=== PATIENT | male | born 1975 | race Caucasian/White ===

== ENCOUNTER 2020-07-13 14:50 | Outpatient (CLI) | payer OTHER ==
[2020-07-13 15:56] VITALS: BP 132/75
--- NOTE | 2020-07-13 15:56 | SLEEP CARE CONSULTATION ---
Information from patient questionnaire entered by Carla Mckeon. I have reviewed and concur with the information entered by Carla Mckeon. This document represents the service I personally performed and the decisions made by me, Iman Castellano ARNP. History of Present Illness Service Date and Time: 07/13/2020 1450 Reason for Visit: New patient Chief Complaint: reports: Unrefreshed sleep, Snoring, Observed pauses in breathing, Fatigue, Frequent awakenings at night. denies: Insomnia, Excessive daytime sleepiness, Other Date of Onset: 6 years Usual bedtime: 8:30 PM Time it takes to fall asleep: 30 min Snores at night: Yes Observed to quit breathing while asleep: Yes Sleeps alone due to snoring: No Number of times waking at night: 3 plus Reasons for waking at night: reports: Choking, Snoring, Bathroom. denies: Gasping for air, Pain Toss, Turn, or Twitch while sleeping: Yes Recalls having dreams: No Usually gets out of bed at: 0400; 0600 weekends Feels refreshed in the morning: No Morning headache: No Sleepy or fatigued during the day: Yes Ever fallen asleep while driving: No Takes day naps: No Dreams during day naps: No Prior sleep studies: Yes Year and Where: Around 2004 in [place], [place] Additional HPI information: I had the pleasure of seeing SELIN NICHOLSON today regarding the possibility of him having a sleep disorder. His current complaints are unrefreshed sleep, snoring, observed pauses in breathing and frequent awakening nightly. He estimates in 2004 that he had a sleep study but never heard back from them about results. He never went back. - Parasomnia Symptoms Ever been unable to move upon waking from sleep: No Walks in sleep: Yes Talks in sleep: Yes Ever acted out dreams in sleep: No Ever felt weak in the knees when startled or emotional: No Bothered by creepy, crawly, restless sensations in legs: No Problems with memory or concentration: No Subjective Initial [place] Sleepiness Scale score: 3 (in 2019) Past Medical History Past Medical History: denies: Hypertension, Congestive Heart Failure, Diabetes, Coronary Heart Disease, Arrythmia, Hypothyroidism, Anemia, Anxiety, Impotence, Depression, Mood disorder, GERD (only when diet not good, has reflux), Attention deficit Social History 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 Patient is and lives in [place]. Have you smoked in the past 12 months: Yes (vaping since 2013) Cigarettes per day (20/pack): 1 Years of smokin Quit date: 2013 Smoking Pack Years: 0 Alcohol use: Yes Alcohol amount and frequency: 3/month Caffeine use: Yes Caffeine amount and frequency: 1 cup of coffee daily Family History Family history of sleep disordered breathing: Yes (father) Family Hx Sleep Apnea: Father: Snoring Allergies and Home Medications Drug allergies reviewed: Yes (NKDA) Home medication list reviewed: Yes Allergy and home medication list: melatonin 10 mg nightly multivitamin fish oil Review of Systems Weight gain over past 5 years: 30 Cardiovascular: denies: high blood pressure, palpitations, chest pain, irregular heart rate or pulse, leg or foot swelling Respiratory: denies: shortness of breath, chronic cough Gastrointestinal: denies: heartburn, difficulty swallowing Urinary: reports: frequency. denies: impotence Neurological: denies: headaches, seizure, head trauma, speech dysfunction, gait or balance problems, fainting or unconsciousness Psychiatric: reports: anxiety. denies: Attention Deficit Hyperactivity, depression, mood disorder, claustrophobia Ear/Nose/Throat: reports: injury to nose (fracture when young; has trouble breathing through nose), wisdom teeth removed. denies: nasal congestion, sinus problems, nose bleeds, dry mouth/throat, tonsillectomy Endocrine: reports: increased urination Musculoskeletal: reports: joint pain, back pain, mobility problems Immunologic: denies: allergies to food or environment Physical Exam Blood Pressure: 132/75 Cuff size: wrist Heart Rate: 83 O2 Saturation: 96 Height: 5 ft 10 in Weight: 245 lb Body Mass Index: 35.2 BMI Classification: Obese Neck circumference: 18 (inches) HEENT: No craniofacial malformation Nostrils: patent to airflow Turbinates: normal Septum: deviated left Mouth and throat: narrow oropharynx Soft palate: normal Hard palate: normal Uvula: normal Uvula visualization: 25% Mallampati Class III Tongue: enlarged in size with teeth smiley on lateral edges Tonsils: 2+ Chin and jaw: normal size and position Neck: normal w/o lymphadenopathy or thyromegaly Heart: regular rate and rhythm Lungs: clear bilaterally Impression and Plan 1. Suspected Obstructive Sleep Apnea-Hypopnea Syndrome, as suggested by a history of loud and irregular snoring, observed cessation of breath while asleep, gasping or choking in sleep, frequent awakening during the night, unrefreshed sleep, and excessive daytime sleepiness. I reviewed that a narrow oropharynx and obesity are common predisposing factors for obstructive sleep apnea-hypopnea syndrome. I recommend proceeding to polysomnography to confirm the diagnosis and to assess severity. If the patient has significant sleep disordered breathing, a manual CPAP titration study will also be performed to find the optimal treatment pressure. I informed the patient of what the sleep studies involve and after some discussion, obtained agreement to proceed. The pathophysiology of obstructive sleep apnea-hypopnea syndrome was discussed with the patient and health risks of cardiovascular and cerebrovascular disease if not treated. AAS brochure for obstructive sleep apnea-hypopnea syndrome given and reviewed. Risks of drowsy driving discussed in detail and patient advised to avoid long distance driving and to wool puller at the first sign of drowsiness. Patient agreed to plan. * Schedule polysomnography +- manual CPAP titration study. * Avoid long distance driving or driving when feeling sleepy. * Avoid alcohol, sedative and muscle relaxant around bedtime. * Attempt to lose weight. * Review instructions provided by trained office staff on how to prepare for the sleep study. * Return for follow-up after sleep study completed. Visit Type: In Office Time Spent with Patient (minutes): 35 Provider Statement: I spent 100% of the Face to Face Visit with the patient with greater than 50% spent counseling the patient and coordination of care.
== END 2020-07-13 14:51 | disposition home or self-care (01) ==
LOC: SC 14:50
PROVIDERS: ATTEND Nurse Practitioner Family
DX: R06.83 Snoring (principal); R06.81 Apnea, not elsewhere classified; G47.8 Other sleep disorders; G47.10 Hypersomnia, unspecified; E66.9 Obesity, unspecified; Z68.35 Body mass index [BMI] 35.0-35.9, adult
CPT/HCPCS: 99203; 99212

== ENCOUNTER 2020-08-18 19:16 | Outpatient (CLI) | payer OTHER | END 2020-08-18 19:17 | disposition home or self-care (01) | LOC: SC 19:16 | PROVIDERS: ATTEND Nurse Practitioner Family | DX: G47.33 Obstructive sleep apnea (adult) (pediatric) (principal); E66.3 Overweight; Z68.35 Body mass index [BMI] 35.0-35.9, adult | CPT/HCPCS: 95810 ==

== ENCOUNTER 2020-08-25 16:31 | Outpatient (CLI) | payer OTHER ==
--- NOTE | 2020-08-25 16:57 | SLEEP CARE CONSULTATION ---
Information from patient questionnaire entered by Carla Mckeon. I have reviewed and concur with the information entered by Carla Mckeon. This document represents the service I personally performed and the decisions made by me, Iman Castellano ARNP. History of Present Illness Service Date and Time: 08/25/2020 1631 Initial [place] Sleepiness Scale score: 3 (in 2020) Current [place] Sleepiness Scale score: 7 Additional HPI information: SELIN NICHOLSON returns for follow up and results of the recently performed polysomnography. I explained the pathophysiology behind obstructive sleep apnea. We then spent quite a bit of time discussing different treatment options. For mild obstructive sleep apnea, surgery and oral appliance are alternatives to nasal CPAP therapy but in moderate or severe cases, nasal CPAP is the most effective and reliable treatment. Because apnea is primarily in supine position, then positional management therapy could be effective. Methods discussed such as positioning with pillows, using a T-shirt with tennis balls in the back, and shown commercial products that have a pillow format on back to prevent supine sleep. I reviewed the impact of weight changes on sleep apnea and strongly recommended losing weight. After some discussion, the patient opted to go with the nasal CPAP therapy. Nasal autoCPAP set at 4-15 cmH20 will be ordered with rationale explained. A manual titration study will be ordered if unable to find optimal pressure with office adjustments. I explained how CPAP machine works with sample devices [email or web address] Dreamstation and Orthocon [id number] and what to expect when using the machine. Using CPAP every night in order to get used to it was emphasized. Patient advised to put CPAP mask on before getting into bed so as not to fall asleep without CPAP. To assist acclimation to CPAP use, it could also be used for a short time during day while reading or watching TV. The patient was instructed to call the CPAP supplier to discuss any mechanical problem that may occur. If the mask given is uncomfortable or is difficult to keep on through the night even with adjustment, contact the CPAP supplier as many will replace with another mask style if notified before 30 days. If snoring or perceives is not getting enough air or too much air from the machine, notify this office. [facility] patient education PAP tips reviewed and given to patient. Patient counseled not drink alcohol less than 4 hours before bedtime as it can increase snoring and apnea. Patient was cautioned about risks of drowsy driving until sleepiness symptoms resolve. Sleep Study - Results Type of Sleep Study: Polysomnography Prior sleep studies: Yes Year and Where: Around 2004 in [place], [place] Polysomnography/Home Sleep Study results: IMPRESSION: The quality of the study is good. The patient had normal sleep efficiency. The sleep architecture was abnormal for sleep fragmentation and reduced amount of time spent in REM sleep. Respiratory monitoring showed mild obstructive sleep apnea-hypopnea (AHI = 7.3) associated with frequent arousals, oxyhemoglobin desaturation and mild hypoxia (constantino oxygen saturation of 88%). The respiratory events occurred only during REM sleep (supine AHI = 9.8; non-supine = 0.00). Snore was light to moderate in intensity. There was no significant periodic leg movement of sleep. Cardiac rhythm was normal sinus rhythm without significant arrhythmia. No abnormal behavior (parasomnia) observed during the night. Allergies and Home Medications Drug allergies reviewed: Yes (NKDA) Home medication list reviewed: Yes (no changes) Review of Systems Review of systems same as previous: Yes (no changes) Physical Exam Heart Rate: 53 O2 Saturation: 98 Height: 5 ft 10 in Weight: 244 lb Body Mass Index: 34.9 BMI Classification: Obese Impression and Plan 1. Obstructive Sleep Apnea-Hypopnea Syndrome, mild, with lowest oxygen saturation of 88%. Obviously this is the cause of the patients symptoms of unrefreshed sleep, and excessive daytime sleepiness. Positive pressure therapy could benefit his overall health and reduce risks of cardiovascular and cerebrovascular adverse events. As mentioned above, the patient will be started on nasal autoCPAP therapy with pressure set at 4-15 cmH2O. A manual titration study will be completed if unable to find optimal treatment pressure with office adjustments. Compliance guidelines also reviewed. A copy of compliance guidelines will be given for reference at check out. Because the apnea is more severe supine, I instructed to avoid sleeping supine using pillow positioning until able to start CPAP use. * Nasal auto CPAP therapy, pressure at 4-15 cm H2O. * Attempt to lose weight. * Avoid alcohol consumption near bedtime. * Avoid supine sleep until using CPAP. * The patient is again cautioned about driving until sleepiness completely resolves. * Return one month after CPAP obtained. I will assess response to therapy and compliance at that time. Visit Type: In Office Time Spent with Patient (minutes): 16 Provider Statement: I spent 100% of the Face to Face Visit with the patient with greater than 50% spent counseling the patient and coordination of care.
== END 2020-08-25 16:32 | disposition home or self-care (01) ==
LOC: SC 16:31
PROVIDERS: ATTEND Nurse Practitioner Family
DX: G47.33 Obstructive sleep apnea (adult) (pediatric) (principal); E66.9 Obesity, unspecified; Z68.34 Body mass index [BMI] 34.0-34.9, adult
CPT/HCPCS: 99212; 99213

== ENCOUNTER 2020-10-25 16:40 | Outpatient (CLI) | payer OTHER ==
--- NOTE | 2020-10-25 17:14 | SLEEP CARE CONSULTATION ---
Information from patient questionnaire entered by Carla Mckeon. I have reviewed and concur with the information entered by Carla Mckeon. This document represents the service I personally performed and the decisions made by me, Iman Castellano ARNP. History of Present Illness Service Date and Time: 10/25/2020 1640 Previous diagnosis: Mild, Obstructive Sleep Apnea-Hypopnea Syndrome AHI: 7.3 Reason for follow up: first compliance Equipment type: CPAP Equipment obtained from: Other ([facility]; gotten initial supplies so far) Mask style: Nasal Mask brand: Resmed Backup mask available: No (will need to keep mask when replaced) Last cushion change: 1 month Prior sleep studies: Yes Year and Where: Around 2004 in [place], [place] Type of Sleep Study: Polysomnography HPI additional information: SELIN NICHOLSON was diagnosed to have mild, AHI 7.3, obstructive sleep apnea- hypopnea syndrome and returned today for CPAP therapy first compliance follow- up. CPAP Compliance Data - Data Reviewed with Patient Average duration of nightly device use: 7 h 41 min Compliance rate %: 100 Current pressure setting (cmH2O): 4-15 (median 6.7, average 10.4, max 12.3) Average residual AHI: 0.9 Subjective Patient concerns: reports: air blowing in eyes (readjustment helps). denies: aerophagia, mask discomfort (would like to try a full face mask), mask leak noise, condensation in mask/hose, nasal congestion, dry mouth, nose, throat, epistaxis, other Observed to snore while using device: No (only once) Current pressure setting perceived as: comfortable On therapy, patient: reports: sleeping better, awakening more refreshed, being more awake and alert during the day, more rested overall. denies: drowsiness while driving Initial [place] Sleepiness Scale score: 3 (in 2020) Current [place] Sleepiness Scale score: 3 Allergies and Home Medications Drug allergies reviewed: Yes (none) Home medication list reviewed: Yes (no changes) Review of Systems Review of systems same as previous: Yes (no changes) Physical Exam Heart Rate: 72 O2 Saturation: 98 Height: 5 ft 10 in Weight: 249 lb Body Mass Index: 35.7 BMI Classification: Obese Impression and Plan 1. Obstructive Sleep Apnea-Hypopnea Syndrome, mild, with good treatment compliance and good apnea control. On CPAP therapy, the patient has better sleep quality and is more rested overall. Patient would like to try a full face mask. He has been using the nasal cushion mask and it will move around causing some air to blow in his eyes. He also states his left nare usually is blocked and difficult to breathe through. He thinks a full face mask would work better since it covers his mouth. I will write to have him try the full face mask. The median pressure being used is at 6.7 cmH2O, his average is 10.4 cmH2O and his maximum at 12.3 cmH2O. I am adjusting his pressure to reflect this to 7-12 cmH2O. I will have him follow up in 1-2 months to evaluate response. Patient's apnea severity and rationale for treatment to reduce apnea, improve sleep quality and reduce cardiovascular and cerebrovascular events was reviewed. * Change auto CPAP pressure to 7-12 cmH2O * Patient to try full face mask * Notify me if snoring with mask or feeling that the pressure is too much or too little * Call this office if any problems using CPAP * Return for follow up in 1-2 months, or sooner if concerns arise Counseling Topics: Spare mask Visit Type: In Office Time Spent with Patient (minutes): 19 Provider Statement: I spent 100% of the Face to Face Visit with the patient with greater than 50% spent counseling the patient and coordination of care.
== END 2020-10-25 16:41 | disposition home or self-care (01) ==
LOC: SC 16:40
PROVIDERS: ATTEND Nurse Practitioner Family
DX: G47.33 Obstructive sleep apnea (adult) (pediatric) (principal); E66.9 Obesity, unspecified; Z68.35 Body mass index [BMI] 35.0-35.9, adult
CPT/HCPCS: 99212

== ENCOUNTER 2020-11-25 16:50 | Outpatient (CLI) | payer OTHER ==
--- NOTE | 2020-11-25 17:09 | SLEEP CARE CONSULTATION ---
Information from patient questionnaire entered by Carla Mckeon. I have reviewed and concur with the information entered by Carla Mckeon. This document represents the service I personally performed and the decisions made by me, Iman Castellano ARNP. History of Present Illness Service Date and Time: 11/25/2020 1650 Previous diagnosis: Mild, Obstructive Sleep Apnea-Hypopnea Syndrome AHI: 7.3 Reason for follow up: one month (followup - pressure change) Equipment type: CPAP Equipment obtained from: Other ([facility]; initial supplies so far) Mask style: Full face Backup mask available: Yes (other mask) Last cushion change: 3 weeks Prior sleep studies: Yes Year and Where: Around 2004 in [place], [place], 2019 [facility] Type of Sleep Study: Polysomnography HPI additional information: SELIN NICHOLSON was diagnosed to have mild, AHI 7.3, obstructive sleep apnea- hypopnea syndrome and returned today for CPAP therapy one month pressure change follow-up. CPAP Compliance Data - Data Reviewed with Patient Average duration of nightly device use: 8 h 14 min Compliance rate %: 100 Current pressure setting (cmH2O): 7-15 Average residual AHI: 0.9 Subjective Patient concerns: denies: aerophagia, mask discomfort, air blowing in eyes, mask leak noise, condensation in mask/hose, nasal congestion, dry mouth, nose, throat, epistaxis, other Observed to snore while using device: No Current pressure setting perceived as: comfortable On therapy, patient: reports: sleeping better, awakening more refreshed, being more awake and alert during the day, more rested overall. denies: drowsiness while driving Initial [place] Sleepiness Scale score: 3 (in 2019) Current [place] Sleepiness Scale score: 1 Allergies and Home Medications Home medication list reviewed: Yes (no changes) Review of Systems Review of systems same as previous: Yes (changes) Physical Exam Heart Rate: 70 O2 Saturation: 96 Height: 5 ft 10 in Weight: 250 lb Body Mass Index: 35.9 BMI Classification: Obese Impression and Plan 1. Obstructive Sleep Apnea-Hypopnea Syndrome, mild, with excellent treatment compliance and excellent apnea control. On CPAP therapy, the patient has better sleep quality and is more rested overall. He has really liked the change to a full face mask. It is much more comfortable and the pressure does not feel like it is too much at all. He likes the current pressure setting. He has not other complaints for mask or machine use. He states he will be moving in March to [place] and would like to know how he would get supplies there. I advised him to establish with a sleep center there and they will transfer DME locally for him to get supplies. He was also advised to obtain and keep a copy of his sleep study to take with him. He voiced understanding and agreed with plan. Patient's apnea severity and rationale for treatment to reduce apnea, improve sleep quality and reduce cardiovascular and cerebrovascular events was reviewed. * Continue autoCPAP pressure at 7-15 cmH2O * Notify me if snoring with mask or feeling that the pressure is too much or too little * Attempt to lose weight * Call this office if any problems using CPAP * Return for follow up in 3 months, or sooner if concerns arise Counseling Topics: Spare mask, Weight loss health impact Visit Type: In Office Time Spent with Patient (minutes): 15 Provider Statement: I spent 100% of the Face to Face Visit with the patient with greater than 50% spent counseling the patient and coordination of care.
== END 2020-11-25 16:51 | disposition home or self-care (01) ==
LOC: SC 16:50
PROVIDERS: ATTEND Nurse Practitioner Family
DX: G47.33 Obstructive sleep apnea (adult) (pediatric) (principal); E66.9 Obesity, unspecified; Z68.35 Body mass index [BMI] 35.0-35.9, adult
CPT/HCPCS: 99212

== ENCOUNTER 2021-02-17 16:40 | Outpatient (CLI) | payer OTHER ==
--- NOTE | 2021-02-17 17:09 | SLEEP CARE CONSULTATION ---
Information from patient questionnaire entered by Carla Mckeon. I have reviewed and concur with the information entered by Carla Mckeon. This document represents the service I personally performed and the decisions made by me, Iman Castellano ARNP. History of Present Illness Service Date and Time: 02/17/2021 1640 Previous diagnosis: Mild, Obstructive Sleep Apnea-Hypopnea Syndrome AHI: 7.3 Reason for follow up: three month Equipment type: CPAP Equipment obtained from: Other ([facility]; getting supplies as needed) Mask style: Full face Backup mask available: No (will keep old mask when replaced) Last cushion change: 3 months Prior sleep studies: Yes Year and Where: Around 2004 in [place], [place], 2019 [facility] Type of Sleep Study: Polysomnography HPI additional information: SELIN NICHOLSON was diagnosed to have mild, AHI 7.3, obstructive sleep apnea- hypopnea syndrome and returned today for CPAP therapy three month follow-up. CPAP Compliance Data - Data Reviewed with Patient Average duration of nightly device use: 7 h 34 min Compliance rate %: 93 Current pressure setting (cmH2O): 7-15 Average residual AHI: 0.5 Subjective Patient concerns: reports: other (skin redness on cheeks from mask). denies: aerophagia, mask discomfort, air blowing in eyes, mask leak noise, condensation in mask/hose, nasal congestion, dry mouth, nose, throat, epistaxis Observed to snore while using device: No Current pressure setting perceived as: comfortable On therapy, patient: reports: sleeping better, awakening more refreshed, being more awake and alert during the day, more rested overall. denies: drowsiness while driving Initial [place] Sleepiness Scale score: 3 (in 2020) Current [place] Sleepiness Scale score: 0 Allergies and Home Medications Home medication list reviewed: Yes (no changes) Review of Systems Review of systems same as previous: Yes (no changes) Physical Exam Heart Rate: 63 O2 Saturation: 98 Height: 5 ft 10 in Weight: 243 lb Body Mass Index: 34.8 BMI Classification: Obese Impression and Plan 1. Obstructive Sleep Apnea-Hypopnea Syndrome, mild, with good treatment compliance and excellent apnea control. On CPAP therapy, the patient has better sleep quality and is more rested overall. He has been getting some redness on his cheeks. He states it is not painful or itchy. I advised him to look for mask liners with his DME or online to go between his skin and the mask to reduce skin redness. He voiced understanding. He had no other concerns today. I will have him follow up in about a year. He is moving to [place] and will need to establish care there once he has moved this summer. Patient's apnea severity and rationale for treatment to reduce apnea, improve sleep quality and reduce cardiovascular and cerebrovascular events was reviewed. * Continue autoCPAP pressure at 7-15 cmH2O * Notify me if snoring with mask or feeling that the pressure is too much or too little * Attempt to lose weight * Call this office if any problems using CPAP * Return for follow up in 1 year, or sooner if concerns arise Counseling Topics: Spare mask, Weight loss health impact Visit Type: In Office Time Spent with Patient (minutes): 16 Provider Statement: I spent 100% of the Face to Face Visit with the patient with greater than 50% spent counseling the patient and coordination of care.
== END 2021-02-17 16:41 | disposition home or self-care (01) ==
LOC: SC 16:40
PROVIDERS: ATTEND Nurse Practitioner Family
DX: G47.33 Obstructive sleep apnea (adult) (pediatric) (principal); E66.9 Obesity, unspecified; Z68.34 Body mass index [BMI] 34.0-34.9, adult
CPT/HCPCS: 99212